=== PATIENT | male | born 2000 | race Caucasian/White ===

== ENCOUNTER 2019-12-14 20:28 | Emergency (ER) | payer BC ==
[2019-12-14 20:48] VITALS: BP 106/52
--- NOTE | 2019-12-14 22:17 | UC ---
FLU HPI - HPI Summary HPI Summary: 19-year-old male presents with complaints of sudden onset of shaking chills, generalized malaise, body aches, nasal congestion, sore throat, dry nonproductive cough yesterday during the night. States symptoms have progressively worsened throughout the day and has developed severe fatigue. Denies ear pain, dysphagia, chest pain, shortness of breath, abdominal pain, nausea, vomiting, or diarrhea. - History of Current Complaint Chief Complaint: UCRespiratory Stated Complaint: FEVER, FLU SYMPTOMS Time Seen by Provider: 12/14/19 21:49 Hx Obtained From: Patient Pain Intensity: 7 - Allergy/Home Medications Allergies/Adverse Reactions: Allergies Allergy/AdvReac Type Severity Reaction Status Date / Time ceftriaxone [From Rocephin] Allergy Intermediate Hives Verified 12/14/19 20:48 Home Medications: Home Medications Acetaminophen [Tylenol Extra Strength] 1,000 mg PO Q6HR 12/14/19 [History Confirmed 12/14/19] Ibuprofen TAB* [Motrin TAB* 600 MG] 600 mg PO Q6HR 12/14/19 [History Confirmed 12/14/19] PMH/Surg Hx/FS Hx/Imm Hx Previously Healthy: Yes - Denies significant PMH - Surgical History Surgical History: None - Family History Known Family History: Positive: Non-Contributory - Social History Occupation: Student Lives: Dormitory/Roommates Alcohol Use: Weekly Alcohol Amount: weekends Substance Use Type: None Smoking Status (MU): Never Smoked Tobacco Review of Systems All Other Systems Reviewed And Are Negative: Yes Constitutional: Positive: Fever, Chills, Fatigue Eyes: Negative: Drainage, Eye Redness ENT: Positive: Sore Throat, Nasal Discharge, Sinus Congestion, Sinus Pain/ Tenderness. Negative: Ear Ache Respiratory: Positive: Cough. Negative: Shortness Of Breath Cardiovascular: Negative: Palpitations, Chest Pain Gastrointestinal: Negative: Abdominal Pain, Vomiting, Diarrhea, Nausea Genitourinary: Positive: Negative Musculoskeletal: Positive: Myalgia Neurological: Positive: Negative Is Patient Immunocompromised?: No Physical Exam - Summary Physical Exam Summary: GENERAL APPEARANCE: Well developed, well nourished, alert and cooperative, and appears to be in no acute distress. EYES: Conjunctiva clear. No drainage. EARS: External auditory canals and tympanic membranes clear, hearing grossly intact. NOSE: Moderate nasal congestion. No nasal discharge. THROAT: Pharyngeal erythema. No tonsilar inflammation, swelling, exudate, or lesions. Uvula midline. NECK: Neck supple, non-tender without lymphadenopathy. CARDIAC: Normal S1 and S2. No S3, S4 or murmurs. Rhythm is regular. There is no peripheral edema, cyanosis or pallor. Extremities are warm and well perfused. Capillary refill is less than 2 seconds. Peripheral pulses intact. LUNGS: Clear to auscultation without rales, rhonchi, wheezing or diminished breath sounds. Dry nonproductive cough. ABDOMEN: Positive bowel sounds. Soft, nondistended, nontender. No guarding or rebound. No masses or hepatosplenomegally. MUSKULOSKELETAL: ROM intact to all extremities. No joint erythema or tenderness. Normal muscular development. Normal gait. SKIN: Skin normal color, texture and turgor with no lesions or eruptions. Triage Information Reviewed: Yes Vital Signs: Initial Vital Signs Temp 99 F 12/14/19 20:43 Pulse 102 12/14/19 20:43 Resp 16 12/14/19 20:43 BP 106/52 12/14/19 20:43 Pulse Ox 100 12/14/19 20:43 Vital Signs Reviewed: Yes Flu Course/Dx - Course Course Of Treatment: 19-year-old male presents with complaints of sudden onset of shaking chills, generalized malaise, body aches, nasal congestion, sore throat, dry nonproductive cough yesterday during the night. States symptoms have progressively worsened throughout the day and has developed severe fatigue. Denies ear pain, dysphagia, chest pain, shortness of breath, abdominal pain, nausea, vomiting, or diarrhea. Afebrile. Vital signs stable. Patient had moderate nasal congestion, normal TMs, pharyngeal erythema, no tonsillar swelling or exudate, no cervical lymphadenopathy, clear bilateral breath sounds , dry nonproductive cough, and otherwise unremarkable exam. Rapid flu test was positive for influenza A. Reviewed the results with the patient and discussed risks and benefits of treating with Tamiflu and patient is electing started at this time. He was given the first dose in the clinic. Also recommended continued symptomatic treatment for flu including Tessalon Perles 1 capsule every 8 hours as needed for cough. He is to follow up with the [facility] in 7 days if symptoms are not improving. Anticipatory guidance warning symptoms were reviewed with the patient. Verbalizes understanding and agrees with plan of care. - Differential Dx/Diagnosis Differential Diagnosis/HQI/PQRI: Bronchitis, Influenza, Pneumonia, Upper Respiratory Infection Provider Diagnosis: Influenza A Discharge ED - Sign-Out/Discharge Documenting (check all that apply): Patient Departure All imaging exams completed and their final reports reviewed: No Studies - Discharge Plan Condition: Stable Disposition: HOME Prescriptions: Benzonatate CAP* [Tessalon 100 MG CAP*] 100 mg PO TID PRN #21 cap PRN Reason: Cough Oseltamivir CAP* [Tamiflu CAP*] 75 mg PO BID #9 cap Patient Education Materials: Influenza (ED) Referrals: No Primary Care Phys,NOPCP [Primary Care Provider] - Additional Instructions: Your flu test in the clinic today was positive for influenza A. Start Tamiflu 1 capsule twice a day for 5 days. We gave you the first dose in the clinic. Get plenty of rest. Drink plenty of fluids to avoid dehydration especially if you are running any fever. Take over the counter acetaminophen (Tylenol) or ibuprofen (Advil, Motrin) according to directions as needed for pain or fever. Take Tessalon Perles 1 cap every 8 hours as needed for cough. Use salt water gargles several times a day if you have a sore throat. You may also use Chloraseptic spray or Cepacol lonzenges according to directions which contain a numbing medication and can provide some temporary relief from your sore throat. Follow up with the [facility] in 7 days if symptoms persist. Seek immediate medical attention in the emergency room if you have fever greater than 100.5 F despite taking acetaminophen or ibuprofen, have chest pain , difficulty breathing, are unable to swallow, or have any worsening of symptoms. - Billing Disposition and Condition Condition: STABLE Disposition: Home
[2019-12-14] MEDS ORDERED: Oseltamivir CAP* 75 MG CAP PO ONE (22:23)
[2019-12-15 10:32] LABS: Influenza A Molecular POSITIVE (Negative)
== END 2019-12-14 22:28 | disposition home or self-care (01) ==
LOC: UCEAST 20:28
DX: J10.1 Influenza due to other identified influenza virus with other respiratory manifestations (principal); Z88.1 Allergy status to other antibiotic agents
CPT/HCPCS: 99212; A9270-GY; G0463